=== PATIENT | female | born 1990 | race Caucasian/White ===

== ENCOUNTER → 2018-03-31 10:22 | Outpatient (REF) | payer MEDICAID, SELFPAY ==
[2018-04-01 11:42] LABS: Campylobacter PCR SEE COMMENTS; Salmonella PCR SEE COMMENTS; Shiga Toxin PCR SEE COMMENTS; Shigella/Enteroinvasive Ecoli SEE COMMENTS
[2018-04-04 13:54] LABS: Helicobacter pylori Ag, Feces Negative (NEGAT)
== END ==
LOC: NCHCN 10:22
PROVIDERS: PCP Nurse Practitioner Family; Visit Provider Nurse Practitioner Family
DX: R19.7 Diarrhea, unspecified (principal); R11.2 Nausea with vomiting, unspecified
CPT/HCPCS: 87329; 87338; 87505; 83630; 87177; 87324

== ENCOUNTER 2018-06-25 13:27 | Emergency (ER) | payer MEDICAID, SELFPAY ==
[2018-06-25 13:39] VITALS: BP 124/89; PULSE 81; RESP 18; TEMP 36.9; O2SAT 98
--- NOTE | 2018-06-25 13:55 | W.ED.GENAD ---
Discharge Plan Disposition Patient Disposition: HOME Condition: Good Discharge Details Chief Complaint: RespSymp Clinical Impression: URI (upper respiratory infection) Primary Care Provider: Dayna Benjamin ED Provider: Bro Candelario Home Meds and New Rx's Prescriptions: No Action levonorgestrel [Mirena] 20 mcg/24 hr (5 years) Intrauterine Device RF: 0 Discharge Instructions Instructions: Upper Respiratory Infection (ED) Additional Instructions: if symptoms continue this week follow up with your primary care provider if you have worsening shortness of breath, severe headaches or inability to swallow liquids return to the emergency department Medical Decision Making 27 yo female with hx of fibromyalgia, gerd, smoker, who comes in with cc of cough and sore throat for 5 days or so. Denies travel, dyspnea, high fevers. She has normal oropharynx, clear rhinorrhea, midline uvula, no pain over hyoid or restricted neck movements. Clear lungs and speaking in full sentences, appears well systemically. Given no fever and clear lungs do not feel xray or abx indcated as likelihood of pna unlikely. 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 Suspect her cough is from post nasal drip .Advised f/u with pcp if symptoms continue and return precautions given Differential Diagnosis uri, post nasal drip, bronchitis HPI General Mode of arrival: ambulatory. Date/Time Provider Initiated Documentation: 06/25/18 13:50. Limitations to Documentation: no limitations. Information obtained by: patient. History of Present Illness 27 year old F presents to the emergency department with the chief complaint of cough, described as mild, Patient reports no radiation. Patient started experiencing this day(s) (5) and it has been intermittent. No relieving factors improve symptom(s), No exacerbating factors reported . Patient did receive the following treatments prior to arrival, NSAID Related Data Home Medications Medication Instructions Recorded Confirmed levonorgestrel [Mirena] 06/25/18 Allergies Allergy/AdvReac Type Severity Reaction Status Date / Time pantoprazole sodium AdvReac Intermediate vomiting Unverified 06/25/18 13:45 [From Protonix] red dye AdvReac Mild gi upset Unverified 06/25/18 13:45 methylphenidate HCl AdvReac hyperactivi Unverified 06/25/18 13:45 [From Concerta] ty aloa Allergy Mild Hives Uncoded 06/25/18 13:45 General Stated Complaint: RespSymp DOUGIE: 3 Review of Systems Review of Systems All systems reviewed & are unremarkable except as noted in HPI and below Constitutional Denies chills, Denies fever(s) and Denies weakness Eyes Denies loss of vision Cardiovascular Denies chest pain Gastrointestinal Denies abdominal pain, Denies nausea and Denies vomiting Genitourinary Denies dysuria Musculoskeletal Denies joint swelling Integumentary/Breasts Denies rash Neurologic Denies loss of vision and Denies weakness Psychiatric Denies depression Endocrine Denies cold intolerance and Denies heat intolerance [facility] Social History Smoking/Tobacco Use Status: Current every day Exam Const General: no acute distress Orientation: alert HENMT Head: normal to inspection Ears: external ears normal General nose exam: external nose normal Mouth: moist mucous membranes Eyes General: appearance normal, both eyes and all related structures Neck Neck: normal visual inspection Resp Effort & Inspection: normal respiratory effort and able to speak in complete sentences Cardio Rate: regular rate Skin General skin exam: no rashes or lesions noted Neuro General: alert and oriented x3 Extrem General: normal to inspection Psych Mental Status: mental status grossly normal Course Vital Signs Temperature 36.9 C 06/25/18 13:39 Pulse 81 06/25/18 13:39 Respiratory Rate 18 06/25/18 13:39 Blood Pressure 124/89 06/25/18 13:39 Pulse Oximetry 98 06/25/18 13:39 Temperature 36.9 C 06/25/18 13:39 Temperature Source Skin 06/25/18 13:39 Pulse 81 06/25/18 13:39 Respiratory Rate 18 06/25/18 13:39 Respiratory Effort 06/25/18 13:43 Respiratory Depth Normal 06/25/18 13:43 Blood Pressure 124/89 06/25/18 13:39 Blood Pressure Position Sitting 06/25/18 13:39 Pulse Oximetry 98 06/25/18 13:39 Oxygen Delivery Method Room Air 06/25/18 13:39 Oxygen Flow Rate 0 06/25/18 13:39 Pain Level 7 06/25/18 13:39
--- NOTE | 2018-06-25 14:00 | ED.GENADUL_ITS ---
Discharge Plan Disposition Patient Disposition: HOME Condition: Good Discharge Details Chief Complaint: RespSymp Clinical Impression: URI (upper respiratory infection) Primary Care Provider: Dayna Benjamin ED Provider: Bro Candelario Home Meds and New Rx's Prescriptions: No Action levonorgestrel [Mirena] 20 mcg/24 hr (5 years) Intrauterine Device RF: 0 Discharge Instructions Instructions: Upper Respiratory Infection (ED) Additional Instructions: if symptoms continue this week follow up with your primary care provider if you have worsening shortness of breath, severe headaches or inability to swallow liquids return to the emergency department Medical Decision Making 27 yo female with hx of fibromyalgia, gerd, smoker, who comes in with cc of cough and sore throat for 5 days or so. Denies travel, dyspnea, high fevers. She has normal oropharynx, clear rhinorrhea, midline uvula, no pain over hyoid or restricted neck movements. Clear lungs and speaking in full sentences, appears well systemically. Given no fever and clear lungs do not feel xray or abx indcated as likelihood of pna unlikely. 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 Suspect her cough is from post nasal drip .Advised f/u with pcp if symptoms continue and return precautions given Differential Diagnosis uri, post nasal drip, bronchitis HPI General Mode of arrival: ambulatory . Date/Time Provider Initiated Documentation: 06/25/18 13:50 . Limitations to Documentation: no limitations . Information obtained by: patient . History of Present Illness 27 year old F presents to the emergency department with the chief complaint of cough, described as mild, Patient reports no radiation. Patient started experiencing this day(s) (5) and it has been intermittent. No relieving factors improve symptom(s), No exacerbating factors reported . Patient did receive the following treatments prior to arrival, NSAID Related Data Home Medications Medication Instructions Recorded Confirmed levonorgestrel [Mirena] 06/25/18 Allergies Allergy/AdvReac Type Severity Reaction Status Date / Time pantoprazole sodium AdvReac Intermediate vomiting Unverified 06/25/18 13:45 [From Protonix] red dye AdvReac Mild gi upset Unverified 06/25/18 13:45 methylphenidate HCl AdvReac hyperactivi Unverified 06/25/18 13:45 [From Concerta] ty aloa Allergy Mild Hives Uncoded 06/25/18 13:45 General Stated Complaint: RespSymp DOUGIE: 3 Review of Systems Review of Systems All systems reviewed & are unremarkable except as noted in HPI and below Constitutional Denies chills, Denies fever(s) and Denies weakness Eyes Denies loss of vision Cardiovascular Denies chest pain Gastrointestinal Denies abdominal pain, Denies nausea and Denies vomiting Genitourinary Denies dysuria Musculoskeletal Denies joint swelling Integumentary/Breasts Denies rash Neurologic Denies loss of vision and Denies weakness Psychiatric Denies depression Endocrine Denies cold intolerance and Denies heat intolerance [facility] Social History Smoking/Tobacco Use Status: Current every day Exam Const General: no acute distress Orientation: alert HENMT Head: normal to inspection Ears: external ears normal General nose exam: external nose normal Mouth: moist mucous membranes Eyes General: appearance normal, both eyes and all related structures Neck Neck: normal visual inspection Resp Effort & Inspection: normal respiratory effort and able to speak in complete sentences Cardio Rate: regular rate Skin General skin exam: no rashes or lesions noted Neuro General: alert and oriented x3 Extrem General: normal to inspection Psych Mental Status: mental status grossly normal Course Vital Signs Temperature 36.9 C 06/25/18 13:39 Pulse 81 06/25/18 13:39 Respiratory Rate 18 06/25/18 13:39 Blood Pressure 124/89 06/25/18 13:39 Pulse Oximetry 98 06/25/18 13:39 Temperature 36.9 C 06/25/18 13:39 Temperature Source Skin 06/25/18 13:39 Pulse 81 06/25/18 13:39 Respiratory Rate 18 06/25/18 13:39 Respiratory Effort 06/25/18 13:43 Respiratory Depth Normal 06/25/18 13:43 Blood Pressure 124/89 06/25/18 13:39 Blood Pressure Position Sitting 06/25/18 13:39 Pulse Oximetry 98 06/25/18 13:39 Oxygen Delivery Method Room Air 06/25/18 13:39 Oxygen Flow Rate 0 06/25/18 13:39 Pain Level 7 06/25/18 13:39
== END 2018-06-25 14:10 | disposition home or self-care (01) ==
LOC: ER 14:11
PROVIDERS: Emergency Provider Emergency Medicine; PCP Nurse Practitioner Family
DX: J06.9 Acute upper respiratory infection, unspecified (principal); J02.9 Acute pharyngitis, unspecified; F17.210 Nicotine dependence, cigarettes, uncomplicated
CPT/HCPCS: 99282

== ENCOUNTER 2018-06-27 18:28 | Outpatient (REF) | payer MEDICAID, SELFPAY ==
[2018-06-27 18:52] LABS: Mono Screening Negative (Negative)
== END 2018-06-27 18:48 ==
LOC: NCHCN 18:28
PROVIDERS: PCP Nurse Practitioner Family; Visit Provider Nurse Practitioner Family
DX: R50.9 Fever, unspecified (principal); J02.9 Acute pharyngitis, unspecified; R53.81 Other malaise
CPT/HCPCS: 86308

== ENCOUNTER 2019-04-24 12:47 | Outpatient (REF) | payer MEDICAID, SELFPAY ==
--- NOTE | 2019-04-24 11:00 | SKI_PTH ---
PATIENT: Pat Shah LOC: [facility] U#:[id number] AGE/SX: 28/F ROOM: RE04/24/[address]: Sridhar Han : 1990 BED: DIS: 04/24/2019 SPEC #: [id number] RECD: 04/25/19 12:34 STATUS: JERRY REQ #: [id number] GUNNER: 04/24/19 11:[address]: Sridhar Han DEPT: Surgical Specimen RECD BY: Kaci Figueroa ENTERED: 04/25/19 12:35 SP TYPE: VIVIENNE MERCEDES DR: Dayna Benjamin Tissues: 1 - SKIN BIOPSY(SHAVE/PUNCH) Procedures: SKIN LEVEL 4 Comments: [id number]
== END 2019-04-24 13:07 ==
LOC: NCHCN 12:47
PROVIDERS: PCP Nurse Practitioner Family; Visit Provider Nurse Practitioner Family
DX: B07.9 Viral wart, unspecified (principal); Z80.8 Family history of malignant neoplasm of other organs or systems; L81.8 Other specified disorders of pigmentation
CPT/HCPCS: 88304; 88305

== ENCOUNTER 2019-05-15 00:41 | Outpatient (CLI) | payer MEDICAID, SELFPAY ==
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
== END 2019-05-15 01:01 ==
PROVIDERS: PCP Nurse Practitioner Family; Visit Provider Family Medicine
DX: M47.816 Spondylosis without myelopathy or radiculopathy, lumbar region (principal); S32.009D Unspecified fracture of unspecified lumbar vertebra, subsequent encounter for fracture with routine healing
CPT/HCPCS: 72148

== ENCOUNTER 2019-09-06 10:46 | Outpatient (REF) | payer MEDICAID, SELFPAY ==
[2019-09-06 12:38] LABS: HCT 48.4 % (36.0-46.0); HGB 15.7 g/dL (12.0-15.5); Mean Corp. HGB Concentration 32.4 g/dL (32.0-36.0); Mean Corpuscular Volume 104.8 fL (80-95); Mean Platelet Volume 10.9 fL (8.0-11.0); Platelet Count 250 x1000/uL (130-400); RBC 4.62 m/cumm (4.00-5.20); RBC Distribution Width 14.4 % (11.7-14.6); White Blood Cell Count 8.27 k/cumm (4.4-10.8)
[2019-09-06 13:25] LABS: Bilirubin Negative (Negative); Blood Trace-intact (Negative); Clarity Clear (Clear); Glucose Negative (Negative); Ketones Negative (Negative); Leukocyte Esterase Negative (Negative); Nitrite Negative (Negative); pH 8.5 (5-8)
[2019-09-06 13:35] LABS: ALT 21 U/L (14-59); AST 14 U/L (15-37); Albumin 4.2 g/dL (3.4-5.0); Alkaline Phosphatase 81 U/L (46-116); Anion Gap 12.5 mmol/L (3-11); BUN 9 mg/dL (7-18); Bilirubin, Total 0.4 mg/dL (0.2-1.0); CO2 25.5 mmol/L (21.0-32.0); CREATININE 0.99 mg/dL (0.55-1.02); Calcium 9.4 mg/dL (8.5-10.1); Chloride 103 mmol/L (98-107); Glucose 86 mg/dL (74-106); Potassium 4.7 mmol/L (3.5-5.1); Sodium 141 mmol/L (136-145); Total Protein 6.9 g/dL (6.4-8.2)
[2019-09-06 13:36] LABS: C & S Indicated? No/Sq. Contamination
[2019-09-07 14:30] LABS: Chlamydia Result Negative (Negative); GC Result Negative (Negative)
[2019-09-10 12:05] LABS: IgA 130 mg/dL (85-499); Tissue Transglutaminase IgA <1.2 U/mL (<4.0)
== END 2019-09-06 11:06 ==
LOC: NCHCN 10:46
PROVIDERS: PCP Nurse Practitioner Family; Visit Provider Nurse Practitioner Family
DX: R10.84 Generalized abdominal pain (principal); Z11.3 Encounter for screening for infections with a predominantly sexual mode of transmission
CPT/HCPCS: 80053; 82784; 83516; 85027; 87491; 87591; 81003; 81015; 87480; 87510; 87660

== ENCOUNTER 2019-09-18 13:23 | Outpatient (REF) | payer MEDICAID, SELFPAY ==
[2019-09-18 20:31] LABS: Folate 3.2 ng/mL (8.6-20.0); Vitamin B12 307 pg/mL (193-986)
== END 2019-09-18 13:43 ==
LOC: NCHCN 13:23
PROVIDERS: PCP Nurse Practitioner Family; Visit Provider Nurse Practitioner Family
DX: R10.84 Generalized abdominal pain (principal); D75.89 Other specified diseases of blood and blood-forming organs
CPT/HCPCS: 82607; 82746

== ENCOUNTER 2019-09-18 14:09 | Outpatient (CLI) | payer MEDICAID, SELFPAY ==
--- NOTE | 2019-09-18 14:20 | DI.RAD_ITS ---
EXAM: XR WRIST RT COMPLETE CLINICAL HISTORY: RT WRIST PAIN. TECHNIQUE: 2D digital imaging was performed. COMPARISON: No exams were available for comparison FINDINGS: BONES: No acute fracture is present. No bony destructive lesion is seen. JOINTS: The carpal bones are normally aligned. SOFT TISSUE: Normal. IMPRESSION: Unremarkable radiographs of the right wrist.
--- NOTE | 2019-09-18 14:20 | DI.RAD_ITS ---
EXAM: XR SHOULDER RT COMPLETE 2+V CLINICAL HISTORY: RT SHOULDER PAIN. TECHNIQUE: 2D digital imaging was performed. COMPARISON: No exams were available for comparison FINDINGS: BONES: No acute fracture is present. No bony destructive lesion is seen. JOINTS: No dislocation present. SOFT TISSUE: Normal. IMPRESSION: Unremarkable radiographs of the right shoulder.
== END 2019-09-18 14:29 ==
PROVIDERS: PCP Nurse Practitioner Family; Visit Provider Nurse Practitioner Family
DX: M25.511 Pain in right shoulder (principal); M25.531 Pain in right wrist
CPT/HCPCS: 73030; 73110

== ENCOUNTER 2019-11-12 16:17 | Outpatient (REF) | payer MEDICAID, SELFPAY ==
[2019-11-14 17:01] LABS: COVID-19 RT-PCR Result Not Detected (NotDetected)
== END 2019-11-12 16:37 ==
LOC: NCHCN 16:17
PROVIDERS: PCP Nurse Practitioner Family; Visit Provider Physician Assistant
DX: Z20.828 Contact with and (suspected) exposure to other viral communicable diseases (principal); J06.9 Acute upper respiratory infection, unspecified
CPT/HCPCS: U0003

== ENCOUNTER 2020-02-19 00:51 | Outpatient (CLI) | payer MEDICAID, SELFPAY ==
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
== END 2020-02-19 01:11 ==
PROVIDERS: PCP Nurse Practitioner Family; Visit Provider Family Medicine
DX: M25.561 Pain in right knee (principal); M25.461 Effusion, right knee
CPT/HCPCS: 73718

== ENCOUNTER 2020-09-27 16:56 | Outpatient (REF) | payer MEDICAID, SELFPAY ==
[2020-09-29 16:42] LABS: COVID-19 RT-PCR UVMMC Result Negative (Negative)
== END 2020-09-27 16:57 | disposition home or self-care (01) ==
LOC: NCHCN 16:56
PROVIDERS: PCP Nurse Practitioner Family; Visit Provider Family Medicine
DX: J06.9 Acute upper respiratory infection, unspecified (principal)
CPT/HCPCS: U0003

== ENCOUNTER 2020-12-26 13:14 | Emergency (ER) | payer MEDICAID, SELFPAY ==
[2020-12-26 13:19] VITALS: BP 142/88; PULSE 89; RESP 17; TEMP 37.1; O2SAT 99
--- NOTE | 2020-12-26 13:30 | DI.CT_ITS ---
Exam(s) CT LUMBAR SPINE WO EXAM: CT LUMBAR SPINE WO CLINICAL HISTORY: Lumbar pain and radiculopathy. TECHNIQUE: Imaging Protocol: Axial computed tomography images with coronal and sagittal reformatted images were created and reviewed CONTRAST MATERIAL: Noncontrast COMPARISON: MR MR LUMBAR SPINE WO from 05/15/2019 MR MR LUMBAR SPINE WO from 05/15/2019 FINDINGS: There is stable mild anterior wedging of the L1 vertebral body. No acute fractures are seen. The di scs appear intact. No lytic or blastic bony lesions are seen. There is no spondylolysis, spondyloli sthesis or significant scoliosis. The SI joints are unremarkable. No renal calculi or hydronephrosi s is seen. The aorta is normal in diameter. There is no retroperitoneal hemorrhage. No retroperito shivam adenopathy is seen. Visualized portions of the liver and spleen are are unremarkable. The adre nals appear normal. IMPRESSION: Stable old compression fracture of L1. No acute abnormality. RADIATION DOSE DELIVERED: 466.47mGy.cm Total DLP DATA REPOSITORY: All CT scans at this facility are submitted to the National Radiology Data Registry (NRDR) Dose Index Registry (DIR) with the [employer] (ACR). RADIATION OPTIMIZATION: All CT scans at this facility use at least one of these dose optimization te chniques: automated exposure control; mA and/or kV adjustment per patient size (includes targeted exa ms where dose is matched to clinical indication); or iterative reconstruction.
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
[2020-12-26] MEDS: Ketorolac 30 MG/ML VIAL IM (13:43)
[2020-12-26] MEDS: diazePAM 10 MG/2 ML SYR 5 MG IM (13:43)
[2020-12-26 13:45] LABS: Bilirubin Negative (Negative); Blood Trace-intact (Negative); Clarity Clear (Clear); Glucose Negative (Negative); Ketones Negative (Negative); Leukocyte Esterase Negative (Negative); Nitrite Negative (Negative)
[2020-12-26 13:54] LABS: Bacteria Negative HPF (Negative); C & S Indicated? No; Casts Negative LPF (Negative); Crystals Negative HPF (Negative); Epithelial Cells Few HPF (Negative); Mucus Negative (Negative); RBC 0-2 HPF (0-2)
[2020-12-26] MEDS: Cyclobenzaprine 10 MG TAB, 3 TABS/BTL PO (14:55)
== END 2020-12-26 14:57 | disposition home or self-care (01) ==
PROVIDERS: Emergency Provider Registered Nurse Emergency; PCP Nurse Practitioner Family
DX: M54.5 Low back pain (principal)
CPT/HCPCS: 81025; 96372; 99284; 72131; 81003; 81015; 99283; J1885; J3360

== ENCOUNTER 2021-12-04 15:58 | Outpatient (REF) | payer MEDICAID, SELFPAY ==
[2021-12-06 10:57] LABS: COVID-19 RT-PCR UVMMC Result Negative (Negative)
== END 2021-12-04 15:59 | disposition home or self-care (01) ==
LOC: LBN 15:58
PROVIDERS: PCP Nurse Practitioner Family; Visit Provider Physician Assistant Medical
DX: J06.9 Acute upper respiratory infection, unspecified (principal); Z20.822 Contact with and (suspected) exposure to COVID-19
CPT/HCPCS: U0003